=== PATIENT | female | born 2000 | race Two or more races ===

== ENCOUNTER 2023-07-12 09:09 | Emergency (ER) | payer BC, SELFPAY ==
[2023-07-12 09:10] VITALS: BP 154/95
[2023-07-12 09:40] VITALS: BP 148/76
--- NOTE | 2023-07-12 09:52 | ED.GENMED ---
History of Present Illness
<Lilian Vaughn PA-C - Last Filed: 07/12/23 16:28>
General
Chief Complaint: Abdominal Pain
Source: patient
Exam Limitations: none
Time Seen by Provider: 07/12/23 09:14
Nursing documentation reviewed up to this point in time: agreed with
Travel History
Have you had any contact with someone who has COVID-19?: No
Do you have any symptoms of coronavirus? Fever > 100 degrees, chills, cough, shortness of breath, sore throat, loss of taste or smell, muscle aches, or headache?: No
History of Present Illness
History of Present Illness:
pt is a 23 y/o F with no sig pmh
here with 3 days of lower abd pain, started with some mild diarrhea, x 2 episodes, and lack of appetite
has had some nausea when waves of pain are stronger
says the pain was generalized lower and then moved to RLQ since yesterday.
she didn't sleep much last night
didn't eat any thing other than eggs yesterday
nothing today
did have her menstrual cycle startin 2/2 as usual
stopped and then she just saw some blood with wiping/spotting which is unuusal
no vag discahrge out of th eordinary
nothing taken for [place]
no continued diarrhea.
Past History
<Lilian Vauhgn PA-C - Last Filed: 07/12/23 16:28>
Past History
ED Past Medical History: None
ED Past Surgical History: None
Social History
Tobacco: Non-smoker
Alcohol: None
Drug: None
Personal: Single
Review of Systems
<Lilian Vaughn PA-C - Last Filed: 07/12/23 16:28>
Review of Systems
Allergies reviewed?: Yes
All Other Systems: Not applicable
Phy Exam
<Lilian Vaughn PA-C - Last Filed: 07/12/23 16:28>
Physical Exam
Physical Exam:
GENERAL: Alert , in no apparent distress
EYE: pupils equal and reactive
NECK: Supple
ENT: o/p clr, mmm.
CARDIAC: Regular rate and rhythm .
LUNGS: Clear breath sounds bilaterally, no acute respiratory distress, no wheezes/rales/rhonchi
ABDOMEN: Soft, mild right pelvic tenderness, lower than mcburney's point; no r/g, no cvat, normal bowel sounds
deferred
back: nontender
NEUROLOGICAL: Alert and oriented, no focal neuro deficits
SKIN: Warm and dry, skin intact.
MUSCULOSKELETAL: No edema, well perfused. neg zack's sign
PSYCH: Normal and appropriate interaction.
Course
<Lilian Vaughn PA-C - Last Filed: 07/12/23 16:28>
Orders/Labs/Results
Orders:
Orders
07/12/23 09:42
Test Result ONCE
07/12/23 09:44
Urinalysis Reflex To Culture Urgent
Date Specimen was Collected: 07/12/23
Time Specimen was Collected: 09:42
07/12/23 09:45
Complete Blood Count/With Diff Urgent
Comprehensive Metabolic Panel Urgent
HCG, Serum Qualitative Screen Urgent
Lipase Urgent
07/12/23 09:48
0.9% Sodium Chloride 1000 ml [Nss] 1,000 ml IV BOLUS
Ketorolac [Toradol] 15 mg IV NOW STA
US Transvaginal [US Pelvis W Transvag Combined] Urgent
Comment:
Reason For Exam: r/o torsion right ovary
07/12/23 12:01
CT Abd/Pel (IV only)-[facility] only Urgent
Comment:
Reason For Exam: rlq pain
07/12/23 13:47
Acetaminophen [Tylenol] 1,000 mg PO NOW STA
Dicyclomine [Bentyl] 20 mg PO NOW STA
Abnormal Lab Results
07/12/23 07/12/23
09:44 09:45
WBC 11.4 H 10^3/uL
(4.8-10.8)
RBC 4.15 L 10^6/uL
(4.20-5.40)
Hct 36.6 L %
(37.0-47.0)
MCH 32.0 H pg
(27.0-31.0)
MPV 10.7 H fL
(7.4-10.4)
Absolute Neuts (auto) 8.1 H 10^3/uL
(1.4-6.5)
Absolute Monos (auto) 0.7 H 10^3/uL
(0.1-0.6)
Lymphocytes % 18.7 L %
(20.5-51.1)
Potassium 3.2 L mmol/L
(3.5-5.1)
Carbon Dioxide 20 L mmol/L
(22-30)
Glucose 106 H mg/dl
(70-99)
Calcium 10.5 H mg/dl
(8.4-10.2)
Urine Ketones 3+ A
(Negative)
07/12/23 09:45
07/12/23 09:45
Vital Signs
Initial and Last Documented VS:
Initial Vital Signs
Temp Pulse Resp BP Pulse Ox
97.3 F 117 18 154/95 100
07/12/23 09:10 07/12/23 09:10 07/12/23 09:10 07/12/23 09:10 07/12/23 09:10
Last Documented Vital Signs
Temp Pulse Resp BP Pulse Ox
97.3 F 68 18 136/88 98
07/12/23 09:10 07/12/23 14:40 07/12/23 14:40 07/12/23 14:40 07/12/23 14:40
<Romario Cl Mora, DO - Last Filed: 07/12/23 13:51>
Orders/Labs/Results
Orders:
Orders
07/12/23 09:42
Test Result ONCE
07/12/23 09:44
Urinalysis Reflex To Culture Urgent
Date Specimen was Collected: 07/12/23
Time Specimen was Collected: 09:42
07/12/23 09:45
Complete Blood Count/With Diff Urgent
Comprehensive Metabolic Panel Urgent
HCG, Serum Qualitative Screen Urgent
Lipase Urgent
07/12/23 09:48
0.9% Sodium Chloride 1000 ml [Nss] 1,000 ml IV BOLUS
Ketorolac [Toradol] 15 mg IV NOW STA
US Transvaginal [US Pelvis W Transvag Combined] Urgent
Comment:
Reason For Exam: r/o torsion right ovary
07/12/23 12:01
CT Abd/Pel (IV only)-[facility] only Urgent
Comment:
Reason For Exam: rlq pain
07/12/23 13:47
Acetaminophen [Tylenol] 1,000 mg PO NOW STA
Dicyclomine [Bentyl] 20 mg PO NOW STA
Abnormal Lab Results
07/12/23 07/12/23
09:44 09:45
WBC 11.4 H 10^3/uL
(4.8-10.8)
RBC 4.15 L 10^6/uL
(4.20-5.40)
Hct 36.6 L %
(37.0-47.0)
MCH 32.0 H pg
(27.0-31.0)
MPV 10.7 H fL
(7.4-10.4)
Absolute Neuts (auto) 8.1 H 10^3/uL
(1.4-6.5)
Absolute Monos (auto) 0.7 H 10^3/uL
(0.1-0.6)
Lymphocytes % 18.7 L %
(20.5-51.1)
Potassium 3.2 L mmol/L
(3.5-5.1)
Carbon Dioxide 20 L mmol/L
(22-30)
Glucose 106 H mg/dl
(70-99)
Calcium 10.5 H mg/dl
(8.4-10.2)
Urine Ketones 3+ A
(Negative)
07/12/23 09:45
07/12/23 09:45
Vital Signs
Initial and Last Documented VS:
Initial Vital Signs
Temp Pulse Resp BP Pulse Ox
97.3 F 117 18 154/95 100
07/12/23 09:10 07/12/23 09:10 07/12/23 09:10 07/12/23 09:10 07/12/23 09:10
Last Documented Vital Signs
Temp Pulse Resp BP Pulse Ox
97.3 F 68 18 136/88 98
07/12/23 09:10 07/12/23 14:40 07/12/23 14:40 07/12/23 14:40 07/12/23 14:40
<Lilian Vaughn PA-C - Last Filed: 07/12/23 16:28>
MDM/Problems Addressed
Differential Diagnosis Includes:
Appendicitis, ovarian cyst, endometriosis, UTI, kidney stone
MDM/Problems Addressed:
23-year-old female with couple days of right lower quadrant pain which comes and goes in waves, associated with lack of appetite and a little bit of diarrhea. Patient has not had a fever or urinary symptoms. She has no reported upper back pain.
Apparently her menstrual cycles are quite painful and she just completed her menstrual cycle couple days ago. Here in the emergency department when she gave a urine she notes some spotting. She is not concerned about an STI and has not had any
change to her typical discharge. Patient has had some ongoing GI issues which mom says were more epigastric and thought to be related to her stomach. She is also had a colonoscopy couple years ago which was negative. She has no diagnosis for her
stomach issues. On exam the patient really had no significant abdominal tenderness, she had very mild pelvic tenderness on the right side. Initially she was tachycardic but she was very scared about getting IVs and blood draw. Her tachycardia
resolved once the IV was placed. She received Toradol and initially started with labs and an ultrasound. The ultrasound was negative and thus we proceeded to do a CAT scan to rule out appendicitis. Patient said she had relief of pain with Toradol
but then the pain returned toward the end of her stay. Her CT scan showed what looked to be appendix in the right lower quadrant without any inflammatory changes. I suspected that the patient had acute appendicitis starting 3 days ago that she
should have some inflammatory changes. Also it is reassuring that her white count is 11.4. Incidentally she had some evidence of changes around both kidneys. This is not correlating at all with her symptoms today. The differential is
pyelonephritis, inflammatory infectious changes or less likely renal infarct. She has no risk factors for renal infarct. Patient's pain is very much anterior in the very low pelvic region. I offered a pelvic exam which she declined. Given her
crampy abdominal pain nature I thought maybe dicyclomine may help. Patient was recommended to try ibuprofen or Tylenol and dicyclomine and follow-up with both GI and [facility]. I also note that her K is low which could be related to not eating, she did
have some ketones in her urine from likely starvation ketosis, her sugar is normal. Patient was seen by ED attending and he agrees on disposition home, patient was encouraged to return for any worsening symptoms. A copy of her CT was given
<Lilian Vaughn PA-C - Last Filed: 07/12/23 16:28>
*Critical Care Note
Total Time (30-74mins, 75-104mins- exclusive of procedures): Not Applicable
ED Attending Note
<Lilian Vaughn PA-C - Last Filed: 07/12/23 16:28>
-
Portions of this chart may have been created with voice recognition software.� Occasional wrong word or��sound alike� substitutions may have occurred due to the inherent limitations of voice recognition software.
<Romario Mora DO - Last Filed: 07/12/23 13:51>
ED Attending Note
Patient seen and examined by attending physician: Yes
I performed the substantive portion of visit, reviewed & personally made and approve the management plan that is documented in note by myself or MOISÉS.: Yes
I performed a history and physical exam of patient and discussed management with resident, I reviewed resident's note and agree with documented findings and plan of care.: Yes
ED Attending Note:
I evaluated patient at bedside. The patient does appear somewhat uncomfortable. Regarding CT imaging including the renal comment by radiology, she has no significant CVA discomfort but does have rather low right lumbar comfort. The majority of
her pain is in the right lower quadrant. There is no clear evidence for appendicitis. Possible endometriosis in differential.
Discharge Plan
Departure
Patient Disposition: Home (Routine Discharge)
Date of Disposition: 07/12/23
Time of Disposition: 14:04
Patient with high blood pressure during this ER visit?: No
Condition: Fair
Covid-19: Not Applicable
Discharge Problem:
Abdominal pain
Instructions: Abdominal Pain
Prescriptions:
New
potassium chloride 20 mEq packet
20 meq PO DAILY Qty: 1 0RF
dicyclomine 20 mg tablet
20 mg PO QID PRN (Reason: abdominal pain) Qty: 14 0RF
Referrals:
Dafne Vaughan DO [Active] - Follow up in 1 week
Khanh cMarthur DO [Family Provider] - Follow up in 2-3 days
Florence Hood, DO [Active] - Follow up in 1 week (GI)
Activity Restrictions/Additional Instructions:
Not sure the cause of your abdominal pain. Your CAT scan was reassuring, your blood work was also reassuring however if you continue to have pain or gets worse he should come back for reassessment. In the meantime you should try ibuprofen 600 mg 3
times a day and Tylenol 650 mg 3 times a day for pain. You can also try Bentyl 20 mg every 6-8 hours, this is an antispasmodic for your colon in case this is a bowel problem. Have a bland diet and increase as tolerated. I also prescribed a dose
of potassium. You can take this tonight before bed. Do not take the Bentyl later on today. The potassium and the Bentyl can cause an interaction if they are taken too close together.
Your potassium should risE on its own because it was likely low from not eating.
Please have a low threshold to return if you feel worse. Otherwise follow-up with your family doctor, GI and gynecology. We also did an ultrasound of your pelvis and did not show any signs of ovarian cyst. Sometimes something called endometriosis
could be causing pain
There was an incidental finding in your kidneys that had some enhancement on the CAT scan. This does not really go along with your clinical picture so we do not feel that this is clinically relevant. Please follow-up with your family doctor.
Interventions
Interventions:
*Risk Screen - Suicide Last Done: 07/12/23 09:10
*General Assessment Last Done: 07/12/23 09:10
*Neglect/Abuse Screening Last Done: 07/12/23 09:10
ED- Fall Risk Assessment Last Done: 07/12/23 10:11
*ED COVID-19 Vaccine History Last Done: 07/12/23 10:11
*Nursing Disposition Last Done: 07/12/23 14:40
BU-Dwobzv-Hxvnmhkvlp Assessment Last Done: 07/12/23 09:58
Discharge Date and Time
Discharge Date/Time: 07/12/23 14:40
[2023-07-12 09:58] VITALS: BMI 25.8
[2023-07-12 10:01] LABS: Urine Albumin Negative (Neg - Trace); Urine Bilirubin Negative (Negative); Urine Character Clear (Clear); Urine Color Yellow; Urine Glucose Negative (Negative); Urine Ketone 3+ (Negative); Urine Leukocyte Negative (Negative); Urine Nitrite Negative (Negative); Urine Occult Blood Negative (Negative); Urine Specific Gravity 1.015 (<1.030); Urine Urobilinogen Negative (Neg - 1+)
[2023-07-12] MEDS: NSS 1000 IV (10:07)
[2023-07-12] MEDS: TORADOL 15 MG IV (10:08)
[2023-07-12 10:09] LABS: % Basophils 0.4 % (0-2); % Eosinophils 3.1 % (0-6); % Immature Granulocytes 0.2 % (0-0.5); % Lymphocytes 18.7 % (20.5-51.1); % Monocytes 6.4 % (1.7-9.3); % Neutrophils 71.2 % (42.2-75.2); Absolute Eosinophils 0.4 10^3/uL (0-0.7); Absolute Lymphocytes 2.1 10^3/uL (1.2-3.4); Absolute Monocytes 0.7 10^3/uL (0.1-0.6); Absolute Neutrophils 8.1 10^3/uL (1.4-6.5); Hematocrit 36.6 % (37.0-47.0); Hemoglobin 13.3 g/dL (12.0-16.0); Mean Corp Hgb Conc. 36.3 g/dL (33.0-37.0); Mean Corpuscular Volume 88.2 fL (81.0-99.0); Mean Platelet Volume 10.7 fL (7.4-10.4); Nucleated Red Blood Cells % 0 %; Platelet Count 349 10^3/uL (130-400); Red Blood Cell Count 4.15 10^6/uL (4.20-5.40); Red Cell Dist. Width 11.9 % (11.5-14.5); White Blood Cell Count 11.4 10^3/uL (4.8-10.8)
[2023-07-12 10:17] LABS: HCG, Serum Qualitative Screen Negative
[2023-07-12 10:20] LABS: ALT (SGPT) 20 U/L (0-35); AST (SGOT) 23 U/L (14-36); Albumin 4.8 g/dl (3.5-5.0); Alkaline Phosphatase 62 U/L (38-126); Blood Urea Nitrogen 12 mg/dl (7-17); Calcium 10.5 mg/dl (8.4-10.2); Carbon Dioxide 20 mmol/L (22-30); Chloride 103 mmol/L (98-107); Estimated Creatinine Clearance 98 ml/min; Glucose 106 mg/dl (70-99); Lipase 70 U/L (23-300); Potassium 3.2 mmol/L (3.5-5.1); Sodium 135 mmol/L (135-145); Total Bilirubin 0.8 mg/dl (0.2-1.3); Total Protein 7.7 g/dl (6.3-8.2); eGFR > 60.00
[2023-07-12] MEDS: BENTYL 20 MG PO (14:09)
[2023-07-12 14:40] VITALS: BP 136/88
== END 2023-07-12 14:40 | disposition home or self-care (01) ==
LOC: EMR 09:09
PROVIDERS: Physician Assistant; EMERGENCY PHYSICIAN Emergency Medicine; FAMILY PHYSICIAN Family Medicine
DX: R10.30 Lower abdominal pain, unspecified (principal); R19.7 Diarrhea, unspecified
CPT/HCPCS: 99284; 96374; 96361; 74177; 76830; 76856; 80053; 81003; 83690; 84703; 85025; Q9967